=== PATIENT | male | born 1990 | race Caucasian/White ===

== ENCOUNTER 2022-01-05 09:08 | Inpatient (IN) | payer OTHER ==
[~2022-01-05] VITALS: Ht 175.3 cm; Wt 90.7 kg
[~2022-01-05 09:08] MED LIST: HYDACE5 PO
[2022-01-05 09:54] LABS: BASOPHILS ABSOLUTE AUTO 0.03 K/mm3 (0.00-0.23); BASOPHILS PERCENT AUTO 0 % (0-2); EOSINOPHILS ABSOLUTE AUTO 0.12 K/mm3 (0.00-0.68); EOSINOPHILS PERCENT AUTO 1 % (0-6); Hematocrit 44.8 % (37.0-53.0); Hemoglobin 14.6 g/dL (13.5-17.5); IMMATURE GRAN ABSOLUTE AUTO 0.02 K/mm3 (0.00-0.10); IMMATURE GRAN PERCENT AUTO 0 % (0-1); LYMPHOCYTES ABSOLUTE AUTO 1.86 K/mm3 (0.84-5.20); LYMPHOCYTES PERCENT AUTO 18 % (21-46); MONOCYTES PERCENT AUTO 8 % (4-13); Mean Corpuscular HGB 28.9 pg (26.0-34.0); Mean Corpuscular HGB Conc 32.6 g/dL (31.5-36.5); Mean Corpuscular Volume 89 fL (80-100); Mean Platelet Volume 9.9 fL (9.1-12.4); NEUTROPHILS ABSOLUTE AUTO 7.53 K/mm3 (1.96-9.15); NEUTROPHILS PERCENT AUTO 73 % (41-73); Platelet Count 259 K/mm3 (150-400); RDW Coefficient Variation 12.2 % (11.7-14.2); RDW Standard Deviation 39.9 fL (35.1-46.3); Red Blood Cell Count 5.05 M/mm3 (4.30-5.90); White Blood Cell Count 10.36 K/mm3 (4.00-11.30)
[2022-01-05 10:22] LABS: Alanine Aminotransfer (ALT/SGP 45 U/L (12-78); Albumin, Blood 4.1 g/dL (3.4-5.0); Albumin/Globulin Ratio 1.1 (0.8-1.8); Alk Phos 78 U/L (50-136); Anion Gap 5 mmol/L (6-16); Aspartate Aminotrans (AST/SGOT 26 U/L (12-37); Bilirubin, Total 1.7 mg/dL (0.1-1.0); Blood Urea Nitrogen 14 mg/dL (8-24); Bun/Creatinine Ratio 11.3 (12.0-20.0); CO2, Blood 29 mmol/L (21-32); Calcium, Blood 9.4 mg/dL (8.5-10.1); Chloride, Blood 106 mmol/L (98-108); Creatinine, Blood 1.24 mg/dL (0.60-1.20); Globulin, Blood 3.9 g/dL (2.2-4.0); Glomerular Filtration Rate >60 (60-); Glucose, Blood 103 mg/dL (70-99); Potassium, Blood 4.1 mmol/L (3.5-5.5); Sodium, Blood 140 mmol/L (136-145)
--- NOTE | 2022-01-05 15:08 | NUR ---
SHIFT SUMMARY PT A&OX4, VSS/RA. AMB TENDERNESS LLQ, DENIES N&V/ALEXANDREA CLD PO. PAIN MANAGED WITH OXY 5 MG Q4, TYLENOL AND TORADOL Q6, PRN. LR @ 100 MLS/HR, ABX Q6H PER EMAR. INDEPENDENT IN ROOM, TO BRP, VOIDING WELL. WILL REPORT TO ONCOMING NOC RN.
[2022-01-06 04:37] LABS: BASOPHILS ABSOLUTE AUTO 0.03 K/mm3 (0.00-0.23); BASOPHILS PERCENT AUTO 0 % (0-2); EOSINOPHILS ABSOLUTE AUTO 0.26 K/mm3 (0.00-0.68); EOSINOPHILS PERCENT AUTO 2 % (0-6); Hematocrit 41.7 % (37.0-53.0); Hemoglobin 13.4 g/dL (13.5-17.5); IMMATURE GRAN ABSOLUTE AUTO 0.03 K/mm3 (0.00-0.10); IMMATURE GRAN PERCENT AUTO 0 % (0-1); LYMPHOCYTES ABSOLUTE AUTO 2.15 K/mm3 (0.84-5.20); LYMPHOCYTES PERCENT AUTO 18 % (21-46); MONOCYTES ABSOLUTE AUTO 0.93 K/mm3 (0.16-1.47); MONOCYTES PERCENT AUTO 8 % (4-13); Mean Corpuscular HGB 28.6 pg (26.0-34.0); Mean Corpuscular HGB Conc 32.1 g/dL (31.5-36.5); Mean Corpuscular Volume 89 fL (80-100); Mean Platelet Volume 9.8 fL (9.1-12.4); NEUTROPHILS ABSOLUTE AUTO 8.42 K/mm3 (1.96-9.15); NEUTROPHILS PERCENT AUTO 71 % (41-73); Platelet Count 219 K/mm3 (150-400); RDW Coefficient Variation 12.2 % (11.7-14.2); RDW Standard Deviation 39.8 fL (35.1-46.3); Red Blood Cell Count 4.68 M/mm3 (4.30-5.90); White Blood Cell Count 11.82 K/mm3 (4.00-11.30)
--- NOTE | 2022-01-06 05:10 | NUR ---
SHIFT SUMMARY NO ACUTE CHANGES. PT SLEPT WELL T/O NIGHT. OXYCODONE/TORADOL/TYLENOL FOR ABD PAIN PRN. IVF + ABX PER ORDERS. INDEP IN ROOM. USES CALL LIGHT APPROPRIATELY.
--- NOTE | 2022-01-06 15:45 | NUR ---
Pt. is alert and welcomed me in for a visit. Quickly established rapport. Pt. is unsettled a bit regarding his first personal hospital stay, but displays evidence of understanding. Pt. verbalizes desire to respond to dietary expectations. Normalize the pt. experience and provided some post discharge anticipatory guidance. Pt. displayed evidence of receptivity, and verbalized gratitude for the spiritual care visit.
--- NOTE | 2022-01-07 06:20 | NUR ---
PT VSS T/O NIGHT. PT ALEXANDREA CL PO, DENIED N/V. ABD SOFT, PT CONT TO REP PAIN IN LLQ. PAIN MGD PER EMAR W/REP RELIEF. PT REP +FLATUS, NO BM THIS SHIFT. PT UP OOB INDEP IN ROOM. IVF AND ABX CONT PER ORDERS.
--- NOTE | 2022-01-07 18:39 | NUR ---
SHIFT SUMMARY PT INITIALLY WAS FEELING BETTER; ABD DISTENTION & PAIN WAS DECREASED, BUT THIS AFTERNOON (PRIOR TO STARTING FULL LQ's) HAD AN INCREASE IN LLQ PAIN. HE IS UNSURE IF IT IS R/T INCREASE IN AMBULATION, TAKING MIRALAX, OR NOT TAKING TORADOL CONSISTANTLY; EITHER WAY GOT RELIEF FROM TORADOL AT THIS TIME. PASSING GAS BUT NO BM.
[2022-01-08 04:00] LABS: BASOPHILS ABSOLUTE AUTO 0.03 K/mm3 (0.00-0.23); BASOPHILS PERCENT AUTO 0 % (0-2); EOSINOPHILS ABSOLUTE AUTO 0.45 K/mm3 (0.00-0.68); EOSINOPHILS PERCENT AUTO 4 % (0-6); Hematocrit 38.4 % (37.0-53.0); Hemoglobin 12.9 g/dL (13.5-17.5); IMMATURE GRAN ABSOLUTE AUTO 0.02 K/mm3 (0.00-0.10); IMMATURE GRAN PERCENT AUTO 0 % (0-1); LYMPHOCYTES ABSOLUTE AUTO 2.02 K/mm3 (0.84-5.20); LYMPHOCYTES PERCENT AUTO 19 % (21-46); MONOCYTES ABSOLUTE AUTO 0.93 K/mm3 (0.16-1.47); MONOCYTES PERCENT AUTO 9 % (4-13); Mean Corpuscular HGB 29.1 pg (26.0-34.0); Mean Corpuscular HGB Conc 33.6 g/dL (31.5-36.5); Mean Corpuscular Volume 87 fL (80-100); Mean Platelet Volume 9.6 fL (9.1-12.4); NEUTROPHILS ABSOLUTE AUTO 7.05 K/mm3 (1.96-9.15); NEUTROPHILS PERCENT AUTO 67 % (41-73); Platelet Count 278 K/mm3 (150-400); RDW Coefficient Variation 11.9 % (11.7-14.2); RDW Standard Deviation 38.2 fL (35.1-46.3); Red Blood Cell Count 4.43 M/mm3 (4.30-5.90)
--- NOTE | 2022-01-08 07:50 | NUR ---
PT VSS T/O NIGHT. ABD SOFT, REMAINS PAINFUL IN LLQ W/LOWER ABD CRAMPING. PT ALEXANDREA CL PO, DENIED N/V, REP +FLATUS, NO BM. PT REP PAIN BEST MGD W/TORADOL. PT AMB INDEP IN ROOM. IV ABX CONT PER ORDERS.
[2022-01-08] MEDS ORDERED: ACET325 PO (08:57)
[2022-01-08] MEDS ORDERED: HYDR1TAB94 PO (08:59)
[2022-01-08] MEDS ORDERED: AMOCLA875 PO (08:59)
[2022-01-08] MEDS ORDERED: DOCU100 PO (09:00)
[2022-01-08] MEDS ORDERED: IBUP600 PO (09:01)
--- NOTE | 2022-01-08 09:52 | NUR ---
[id number] pt ischarged to home. pt ambulatory. reports pain is controlled to abd and he is in agreement with plan for discharge. brionna diet without nausea. pt verbalizes understanding of discharge instructions
== END 2022-01-08 09:48 | disposition home or self-care (01) | DRG 392 ==
LOC: ER 09:08 → SURS 09:09
PROVIDERS: Emergency Medicine; ADMIT Surgery
DX: K57.20 Diverticulitis of large intestine with perforation and abscess without bleeding (principal); Z53.29 Procedure and treatment not carried out because of patient's decision for other reasons; F17.210 Nicotine dependence, cigarettes, uncomplicated; Z88.1 Allergy status to other antibiotic agents
CPT/HCPCS: 36415; 74177; 80053; 83690; 85025; 96372; 96374; 96375; 96376; 99285-25; A9270; G0378; J0694; J1170; J1650; J1885; J2270; J2405; J3010; J7030; J7120; Q9967

== ENCOUNTER 2022-03-19 11:55 | Day surgery (SDC) | payer OTHER ==
[~2022-03-19] VITALS: Ht 175.3 cm; Wt 90.5 kg
[~2022-03-19 11:55] MED LIST changes: +ACET325 PO; +AMOCLA875 PO; +DOCU100 PO; +HYDR1TAB94 PO; +IBUP600 PO
== END 2022-03-19 14:12 | disposition home or self-care (01) ==
LOC: ORSCSDS 11:55
PROVIDERS: Surgery
PROC: 0DBP8ZX Excision of Rectum, Via Natural or Artificial Opening Endoscopic, Diagnostic (ICD-10-PCS; principal; 2022-03-19 13:00)
DX: K57.92 Diverticulitis of intestine, part unspecified, without perforation or abscess without bleeding (principal); K57.30 Diverticulosis of large intestine without perforation or abscess without bleeding; K62.1 Rectal polyp; F17.210 Nicotine dependence, cigarettes, uncomplicated
CPT/HCPCS: 88305; J2250; J2704; J7120